=== PATIENT | female | born 1985 | race Caucasian/White ===

== ENCOUNTER → 2018-10-14 14:55 | Outpatient (CLI) | payer SELFPAY ==
[2018-10-14 18:23] LABS: Chlamydia Trachomatis by PCR Negative (Negative); Neisserai gonorrhoeae by PCR Negative (Negative); Probe Check PASS; Sample Adequacy Control PASS; Specimen Processing Control PASS
== END ==
PROVIDERS: Visit Provider Obstetrics & Gynecology
DX: Z12.4 Encounter for screening for malignant neoplasm of cervix (principal); Z11.3 Encounter for screening for infections with a predominantly sexual mode of transmission; Z32.01 Encounter for pregnancy test, result positive
CPT/HCPCS: 87491; 87591; 88175; G0145

== ENCOUNTER → 2018-11-11 16:17 | Outpatient (CLI) | payer SELFPAY ==
[2018-11-11 17:20] LABS: Color, Urine Yellow (Yellow); Glucose, Dipstick Normal (Normal); Ketone-Dipstick 5 mg/dl (Negative); Leukocyte Esterase-Dipstick Negative /ul (Negative); Nitrite-Dipstick Negative (Negative); Occult Blood-Urine Negative /ul (Negative); Protein-Dipstick Negative (Negative); Specific Gravity, Urine 1.015 (1.002-1.030); Urine Bilirubin Dipstick Negative (Negative); Urine Clarity Sl. Cloudy (Clear); Urine Urobilinogen Normal (Normal)
[2018-11-11 17:27] LABS: Absolute Lymphocyte Count 2.51 X10^3/uL (0.83-4.51); Absolute Neutrophil Count 7.3 X10^3/uL (2.0-7.7); Basophil# 0.04 X10^3/uL; Basophil% 0.4 % (0-1); Eosinophil# 0.16 X10^3/uL; Eosinophils% 1.5 % (0-5); Hematocrit 42.6 % (37-47); Hemoglobin 13.9 g/dL (12.0-15.0); Lymphocyte # 2.51 X10^3/ul (4.0); Lymphocyte % 23.7 % (19-41); Mean Corp Hgb Conc 32.6 g/dL (32-36); Mean Corpuscular Hgb 28.3 pg (27.0-32.0); Mean Corpuscular Volume 86.6 fL (81-99); Mean Platelet Vol. 10.1 fl (6.2-12.0); Monocyte# 0.54 X10^3/uL; Monocyte% 5.1 % (0-10); NRBC Flagged by Analyzer 0 % (0-5); Neutrophil # 7.28 X10^3/uL (2.7-7.7); Neutrophil % 68.8 % (47-70); Platelet Count 282 K/mm3 (150-450); RBC Distribution Width CV 14.6 % (11.6-14.6); RBC Distribution Width SD 46.5 fl (35.1-43.9); Red Blood Count 4.92 M/mm3 (4.2-5.4); White Blood Count 10.6 K/mm3 (4.4-11.0)
[2018-11-11 17:37] LABS: Amphetamine Urine VISTA NEGATIVE (<1000 ng/mL); Barbiturate Urine VISTA NEGATIVE (< 200 ng/mL); Benzodiazepine Urine VISTA NEGATIVE (< 200 ng/mL); Cocaine Urine VISTA NEGATIVE (< 300 ng/mL); Ecstacy Urine VISTA NEGATIVE (< 500 ng/mL); Methadone Urine VISTA NEGATIVE (< 300 ng/mL); PCP Urine VISTA NEGATIVE (< 25 ng/mL); THC Urine VISTA NEGATIVE (< 50 ng/mL); Vista UDS pH Range 6
[2018-11-11 17:52] LABS: Thyroid Stim Hormone (TSH) 1.32 uIU/mL (0.358-3.74)
[2018-11-15 10:37] LABS: HIV - WCH Non-Reactive (Nonreactive); Hepatitis B Surface Antigen Non-Reactive (Nonreactive); Hepatitis C Antibody Non-Reactive (Nonreactive); Vitamin D,25 Hydroxy 23.6 ng/mL (29.95-100.01)
[2018-11-18 02:05] LABS: Prenatal RPR NONREACTIVE (NONREACTIVE)
== END ==
PROVIDERS: Visit Provider Obstetrics & Gynecology
DX: Z34.81 Encounter for supervision of other normal pregnancy, first trimester (principal)
CPT/HCPCS: 36415; 80307; 81002; 82306; 84443; 85025; 86703; 86762; 86803; 87340

== ENCOUNTER → 2019-03-03 13:42 | Outpatient (CLI) | payer SELFPAY ==
[2019-03-03 15:05] LABS: Hematocrit 37.4 % (37-47); Hemoglobin 12.2 g/dL (12.0-15.0); Mean Corp Hgb Conc 32.6 g/dL (32-36); Mean Corpuscular Hgb 28.3 pg (27.0-32.0); Mean Corpuscular Volume 86.8 fL (81-99); Mean Platelet Vol. 10.8 fl (6.2-12.0); Platelet Count 257 K/mm3 (150-450); RBC Distribution Width CV 13.9 % (11.6-14.6); RBC Distribution Width SD 44.4 fl (35.1-43.9); Red Blood Count 4.31 M/mm3 (4.2-5.4); White Blood Count 10.4 K/mm3 (4.4-11.0)
[2019-03-03 15:11] LABS: Glucose Challenge Gest 1H 50g 90 mg/dL (70-140)
[2019-03-03 15:22] LABS: Vitamin D,25 Hydroxy 27.6 ng/mL (29.95-100.01)
[2019-03-09 11:38] LABS: PARVOVIRUS B19 IGG 5.6 index (0.0-0.8); PARVOVIRUS B19 IGM 0.2 index (0.0-0.8)
== END ==
PROVIDERS: Visit Provider Obstetrics & Gynecology
DX: O99.283 Endocrine, nutritional and metabolic diseases complicating pregnancy, third trimester (principal); E55.9 Vitamin D deficiency, unspecified; Z3A.00 Weeks of gestation of pregnancy not specified; Z20.828 Contact with and (suspected) exposure to other viral communicable diseases
CPT/HCPCS: 82306; 82950; 85027; 86747

== ENCOUNTER → 2019-04-26 17:29 | Outpatient (CLI) | payer OTHER, SELFPAY | PROVIDERS: Visit Provider Obstetrics & Gynecology | DX: Z36.85 Encounter for antenatal screening for Streptococcus B (principal) | CPT/HCPCS: 87081 ==

== ENCOUNTER 2019-05-16 02:34 | Inpatient (IN) | payer OTHER, SELFPAY ==
[2019-05-16] VITALS (19 sets, daily range): BP systolic 92–129; BP diastolic 35–75; PULSE 78–106; RESP 13–18; TEMP 36.1–36.9; O2SAT 96–99; BMI 42.3
[2019-05-16] MEDS: Lactated Ringers 1,000 ML 999 ML IV (03:34)
[2019-05-16 04:12] LABS: Absolute Neutrophil Count 8.5 X10^3/uL (2.0-7.7); Basophil# 0.04 X10^3/uL; Basophil% 0.3 % (0-1); Eosinophil# 0.11 X10^3/uL; Hematocrit 38.6 % (37-47); Hemoglobin 12.3 g/dL (12.0-15.0); Lymphocyte % 18.2 % (19-41); Mean Corp Hgb Conc 31.9 g/dL (32-36); Mean Corpuscular Hgb 26.1 pg (27.0-32.0); Mean Platelet Vol. 10.5 fl (6.2-12.0); Monocyte# 0.67 X10^3/uL; Monocyte% 5.8 % (0-10); NRBC Flagged by Analyzer 0 % (0-5); Neutrophil # 8.52 X10^3/uL (2.7-7.7); Neutrophil % 74.1 % (47-70); Platelet Count 252 K/mm3 (150-450); RBC Distribution Width CV 15.9 % (11.6-14.6); RBC Distribution Width SD 46.5 fl (35.1-43.9); Red Blood Count 4.71 M/mm3 (4.2-5.4); White Blood Count 11.5 K/mm3 (4.4-11.0)
[2019-05-16] MEDS: Sodium Citrate/Citric Acid 30 ML UDC PO (04:21)
--- NOTE | 2019-05-16 04:29 | HP.PCM_ITS ---
History and Physical Date of Admission: 05/16/19 ACOG ANTEPARTUM RECORD - HISTORY AND PHYSICAL (05/16/2019) Name: AIME RAY History of This : This is a 33-year-old 2 para 1 who presents to labor and delivery with spontaneous rupture membranes and active labor. care has been remarkable for a prior section in which the incision took about 4 months to heal. OB Physician: HANK 's Physician: KIN DIRECTOR OF CLAIMS ...................................................................... : 1985 Age: 33 Address: [address] [place] [address] Phone: (h) [phone] ([phone] Insurance Carrier: [facility] [id number] Emergency Contact: HORTENSIA RAY [phone] ...................................................................... Final STEF: 05/24/19 By Ultrasound: 12 weeks 2 days PARITY: (G-Total Pregnancies P-Fullterm,Premature,Induced AB,Spont AB, Ectopics, Multiple,Living) STEF CONFIRMATION: By LMP: 08/17/18 Initial Exam: 05/24/19 By First Ultrasound Exam: 05/26/19 Final STEF: 05/24/19 OB PROBLEM LIST: ALLERGIC to AMOXICILLIN! Declines msAFP and CF testing EPDS = 6 Excessive weight gain with first , 75+ lbs. Fibromyalgia (trauma induced) has a niece born with a Diaphragmatic Hernia Hx of migraines Post-op C/S incision infection, incision took 4 months to heal. Prior C/S, arrest of dilation and fever; R C/S planned Tachycardia in the 2nd trimester of her first . Work up with Work From Home, no treatment needed. 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 Drug Use - denies use of street drugs Sexual Activity - Residence - lives with Place of - [place], [place] Spouse-Sig Other Name - Hortensia Spouse-Sig Other Occupation - Pharmacist Spouse-Sig Other Phone No - [phone] Children Name(s) - Cassandra PRIOR DELIVERY HISTORY DEL DATE GEST LAB WT LB WT OZ TYPE ANES LABOR TX 13 July 30 39 14 8 9 C-Sec Epidural No ANTEPARTUM FLOW CHART VISIT GE RTC FU F F HI U U DATE WK MD WKS HT PN HR M SS BP ED WT HI GL D EF ST __ ____ ___ __ __ ___ __ __ __ ___ __ __ __ ___ __ 28 Apr 38 SHM 1 38 V + + 120/78 sl 219 tr - Apr 37 JMW 1 37 V + + 104/70 sl 217 tr - 1 50 hi 12 Apr 36 SHM 1 + 130/78 0 213 1+ - 05 Apr 35 SHM 2 35 V + + 116/70 sl 212 tr - Mar SHM 1 33 ? ++ ++ 118/70 0 209 tr ne Apr 14 SHM 2 31 ? + + 116/76 0 205 tr - Mar 11 SHM 2 28 + + 130/76 0 203 tr - Feb 05 SHM 4 24 + + 128/82 0 198 tr - Jan 01 SHM 4 23 + + 108/60 sl 195 tr - Nov 28 SHM 4 + + 114/58 0 191 tr - Oct 24 SHM 4 + 0 102/70 0 185 - - ANTEPARTUM NOTE(S): May 12 2019: feeling well. Csection papers signed. May 05 2019: discomfort and lots of cramping. Cervix check. Apr 26 2019: see note Apr 19 2019: questions regarding C/S Apr 07 2020: Mar 23 2020: none Mar 03 2019: see note Feb 03 2019: doing well Jan 04 2019: see prog note Dec 09 2018: doing well, declines AFP Nov 11 2019: see prog note COMPREHENSIVE ANTEPARTUM NOTE(S): May 13 2020: Entry for 05/12: section consents reviewed and signed. Discussed preop prep, anticipated hospitalization. Plan immediate skin to skin. May 02 2019: H taken [facility]. tkg Apr 26 2019: Aime is here for visit. Planned R C/S and declines GBS today and will discuss this further with Dr SAMANIEGO. She declines LARC and consent signed. LMT Apr 07 2019: Discussed L tour, PTL precautions. NST for tachycardia. Mar 23 2019: Aime is here for a appt. She is feeling good with no issues or edema. Urine tr -. Daughter Taylor with her today. Deciding on names for baby girl. MK Mar 23 2019: Mar 09 2019: Entry for 03/03/19: Discussed PPBC, PTL precautions. Pt with recent exposure to Parvovirus. Titers ordered. Mar 03 2019: Having more irregular ctx's. Reviewed to call if progressive, regular ctx's, bloody show. Some ctx's may be normal but should not be progressive. Had Influenza and plans Tdap around 33 weeks. GCT, CBC, Vitamin D drawn today. LMT Feb 03 2019: PTL, ROM, FM precautions. Anatomy scan completed, normal cord insertion. Plan for repeat C/S at 39wga. Jan 04 2019: Aime is here today for her visit. Patient had comp u/s today in office. She staets that she has been having rt sided discomfort states that has a sharp pain when rt side has pressure applied to it. Long dip done in office leuk, nitrite, and urobilinogen-neg, protein-trace, pH-5, blood- neg, sp gravity-1015, ketones, bilirubin and glucose-neg. jlb Jan 04 2019: Anatomy scan with limited cord views, ventricle upper normal. Repeat heart views and cord views next visit. Dec 12 2018: Aime calling 16 wks 5 days reporting she was in the ER all night with her , who fell out of a tree stand sustaining a Fx ankle and laceration. During her stay in the ER w/ her , she relays feeling faint, having tunnel vision, light headedness and was told she was pale during laceration repair and was told to let her OB know. They just got back home a little while ago. She has had no sleep, she is eating and including a little protein and plenty of water. Sx did not last long, but she still feels off and wondering about the Sx she experienced in the ER? Advised even if she weren't , Sx do not sound out of the ordinary given it was someone close to her who was hurt. Reassurred she is and sometimes women can have similar Sx NOT related to an ER experience, but can occur w/prolonged standing or sudden position changes. Reassurring Sx resolved and likely feeling off d/t emotion of 's injury and that she has been up all night. Continue self care, plenty fluids, eating small meals w/protein and try to take a nap today. Will let Dr. Natalie Gutierrez know. Dec 09 2018: Declines msAFP, Quad screen. Discussed FM, discomforts of . Nausea recently resolved. Discussed diet. Nov 11 2018: Aime is here today for visit, NOB and u/s. Patient states that she has had an increase in headaches, recommended that she should try Tylenol and caffeine if not improving let us know we could maybe send in a script for medication that might help. Patient states that she also uses a cold compress on her eyes and recommended that she could try a compress on back of her neck as well. Patient states that she is taking Zofran for nausea and that headaches makes nausea worse. Patient states that she is constipated from the Zofran she is taking colace and increased to BID advised mirialax if no BM with colace patient has been trying prunes as well. jlb Nov 11 2018: Aime is here for her NOB visit at 12 w 2 d, she is a with an STEF of 05/24/2019. US and PNV with Dr. Natalie Gutierrez completed prior to NOB visit. She and her , Hortensia, have a young daughter at home. Hortensia appears to be supportive. Their daughter was born at [facility] in [place] by C/S for arrest of dilation and maternal fever. Past history updated. Aime reports that she had tachycardia during her sencond trimester, and had a consult with a center line cutter operator, but no treatmet was needed, and it resolved on it's own. She also states that she gained 75+ lbs with her first , and that she lost 30+ lbs shortly after delivery, and then continues to lose 30+ lbs for the next several months following delivery. She denies having PIH. Aime reports that she had delayed wound C/S wound healing d/t edema, and that she has a post- op wound infection. She is hoping to avoid excessive weight gain again, discussed dietary needs and water needs, and watching hidden sodium in foods/drinks. Reviewed caloric needs, limiting empty calories, and limiting caffeine to one cup a day. Printed guide for food safety provided with review. Office practice patterns discussed, including labs that will be collected today. Emergencies/dangers signs to report, round ligament oain, contacting office after hours, reporting s/s of a UTI, and common OTC medications approved/not approved for use during . Aiem takes an OTC vitamin that contains DHA, and tolerates this well. She is a non- smoker, and denies use of drugs or ETOH. Genetic Screening form completed, her has a niece who was born with a Diaphragmatic Hernia. MSAFP and CF testing declined, consent signed as such. Aime states that she has trauma induced Fibromyalgia that feels better with . Denies hx of depression/anxiety. EPDS = 6. She has a hx of migraines and has discussed this at her PNV. She reports daily nausea and some vomiting, reviewed measures that may help minimize nausea, including small frequent meals with protein included throughout the day and adequate water hydration of at least one gallon a day. She has tried Vitamin B6 50 mg twice a day and Unisom with little effect noted. Aime does feel that the nausea is not quite as bad. Aime states that she takes walks several times a week. Lifting restrictions discussed. She states that she understands all information provided during NOB visit, and denies questions following same. To [facility] draw station for labs. AW Nov 11 2018: Discussed caffeine/APAP/benadryl for headaches. labs today. Oct 14 2018: Aime is here today for missed menses appointment. Patient is a . Positive upt in office today. Patient states that lmp is 08/17/2018 making her 8wk 2 days with Stef of 05/24/2019. Patient states that she has had no bleeding or spotting since lmp. Patient states that she has mild nausea, breast tenderness and fatigue. Patient states that nausea is tolerable reviewed vitamin B6 and Unisom if needed for nausea and patient to call office if script needed. Patient has h/o normal pap's. Pap and cultures due at today's visit. Educational materials provided and reviewed with patient. Patient states that she has h/o trauma induced fibromyalgia but that sx improve during and while breast feeding. Jlb REVIEW OF SYSTEMS: GENERAL - Denies fever, or chills SKIN - Denies rash, new skin lesions, or change in moles EYES - Denies blurred vision, or change in visual acuity EARS - Denies ear pain, or difficulty hearing NOSE - Denies nasal congestion, discharge, or bleeding MOUTH - Denies sore throat, or difficulty swallowing NECK - Denies pain or swelling RESPIRATORY - Denies shortness of breath, cough, wheezing CARDIOVASCULAR - Denies palpitations, chest pain, orthopnea, PND, peripheral edema, syncope or claudication GASTROINTESTINAL - Denies nausea, vomiting, diarrhea, constipation, Denies abdominal pain, melena and or bright red blood GENITOURINARY - Denies dysuria, frequency of urination, urgency, or hesitancy MUSCULOSKELETAL - Denies joint or muscle pain, or back pain NEUROLOGICAL - Denies localized numbness, weakness, or tingling PSYCHIATRIC - Denies depression, anxiety, substance abuse or suicide attempts ENDOCRINE - Denies heat or cold intolerance, weight loss or gain, increasing thirst HEMATO-IMMUNOLOGIC - Denies easy bruising, bleeding, oral ulcerations or recurrent infections GENETICS SCREENING: Age 35+ years: No Thalassemia: No Neural Tube Defect: No Down Syndrome: No JÚNIOR-SACHS: No Sickle Cell Disease: No Hemophilia: No Musc. Dystrophy: No Cystic Fibrosis: No-declines screening Barton Chorea: No Mental Retardation: No Fragile X: No Other genetic: yes-diaphragmatic hernia Other defects: yes- diaphragmatic hernia SABs/still births: No Drugs since LMP: No INFECTION HISTORY: High risk AIDS: No High risk Hepatitis: No Exposed to TB: No Exposed to Herpes: No Rash/viral illness since LMP: No History of STD: No MENSTRUAL HISTORY: *Menses Amount/Duration: 7-8 daysMenses Regularity: regularFrequency: monthlyMenarche (Age Onset): 14* PAST SUMMARY: PARITY: 1. Total Pregnancies............ 2 2. Full Term Pregnancies........ 1 3. Premature.................... 0 4. Abortions - Induced.......... 0 5. Abortions - Spontaneous...... 0 6. Ectopics..................... 0 7. Multiple Births.............. 0 8. Living Children.............. 1 PAST #1: Date of :.................. 07/25/17 Gestation Weeks:................ 39 Length of labor(hours):......... 14 Sex:............................ F Weight-lbs:............... 8 Weight-oz:................ 9 Type of Delivery:............... C-Sect Type of Anesthesia:............. Epidural Place of Delivery:.............. [facility] Treatment of Labor?:.... No Comment: ARREST OF DILATION, FEVER PHYSICAL EXAMINATION General Appearence: 33 yo female in no acute distress Vital Signs: AF, VSS Heart: RRR without rubs or gallops Lungs: CTA x 2 Breasts: deferred Abdomen: gravid Pelvis: Cervix: 1 to 2 cm, 50% effaced Presentation: cephalic Station: High Fetus: Size: AGA Movement: present Heart: present Labs for : AIME RAY since 08/27/2018 ORDER DATEIN DESCRIPTION VALUE UNITS RANGE A+ COMMENT CULTURE, GROUP B STREPTOCOCCUS 04/26/19 NOTE Original Ordering Provider: Latasha Lindsey Comments: VAGINAL/RECTAL PRANEETH Culture Group B Beta Streptococcus is not isolated. Reviewed by LATASHA PARVOVIRUS B19 IGG AND IGM 03/03/19 NOTE Original Ordering Provider: Latasha Lindsey PARVO B19 IGG 5.6 index 0.0-0.8 H Negative <0.9 Equivocal 0.9 - 1.1 Positive >1.1 PARVO B19 IGM 0.2 index 0.0-0.8 Negative <0.9 Equivocal 0.9 - 1.1 Positive >1.1 Performed at: [facility] [id number] Commercial Intern: Damon Rodas MD, Phone: [phone] Reviewed by LATASHA VITAMIN D,25 HYDROXY 03/03/19 NOTE Original Ordering Provider: Latasha Lindsey VITAMIN D 25-OH 27.6 ng/mL 29.95-100.01 L Vitamin D 25(OH) Status Range Deficiency <20 ng/mL (50nmol/L) Insufficiency 20 - 30 ng/mL (50 - 75 nmol/L) Sufficiency 30 - 100 ng/mL (75 - 250 nmol/L) Toxicity >100 ng/mL (>250 nmol/L) Reviewed by LATASHA GLUCOSE CHALLENGE GEST 1H 50G 03/03/19 NOTE Original Ordering Provider: Latasha Lindsey GLU GEST 50G 1H 90 mg/dL 70-140 Reviewed by LATASHA CBC-COMPLETE BLOOD CNT NO DIFF 03/03/19 NOTE Original Ordering Provider: Latasha Lindsey WBC 10.4 K/mm3 4.4-11.0 RBC 4.31 M/mm3 4.2-5.4 HGB 12.2 g/dL 12.0-15.0 HCT 37.4 % 37-47 MCV 86.8 fL 81-99 MCH 28.3 pg 27.0-32.0 MCHC 32.6 g/dL 32-36 RDW CV 13.9 % 11.6-14.6 RDW SD 44.4 fl 35.1-43.9 H PLT 257 K/mm3 150-450 MPV 10.8 fl 6.2-12.0 Reviewed by LATASHA RPR 11/11/18 NOTE Original Ordering Provider: Latasha Lindsey RPR NONREACTIVE NONREACTIVE Reviewed by LATASHA HEPATITIS C ANTIBODY 11/11/18 NOTE Original Ordering Provider: Latasha Lindsey HEPATITIS C AB Non-Reactive Nonreactive Non Reactive: < 0.8 Equivocal: >/= 0.8 to < 1.0 Reactive: >/= 1.0 The CDC recommends that a reactive/equivocal HCV antibody result be followed up by the HCV Nucleic Acid Amplification test (798115) Reviewed by LATASHA HEPATITIS B SURFACE ANTIGEN 11/11/18 NOTE Original Ordering Provider: Latasha Lindsey HEPB SURFACE AG Non-Reactive Nonreactive Reviewed by LATASHA HIV - [facility] 11/11/18 NOTE Original Ordering Provider: Latasha Lindsey HIV - [facility] Non-Reactive Nonreactive Reviewed by LATASHA RUBELLA IGG 11/11/18 NOTE Original Ordering Provider: Latasha Lnidsey RUBELLA IGG 168.0 IU/mL Antibody results Interpretation of Immune Status < 5 IU/ml Presumed Non-immune 5 - < 10 IU/ml Equivocal > or = 10 IU/ml Presumed Immune Reviewed by LATASHA VITAMIN D,25 HYDROXY 11/11/18 NOTE Original Ordering Provider: Latasha Lindsey VITAMIN D 25-OH 23.6 ng/mL 29.95-100.01 L Vitamin D 25(OH) Status Range Deficiency <20 ng/mL (50nmol/L) Insufficiency 20 - 30 ng/mL (50 - 75 nmol/L) Sufficiency 30 - 100 ng/mL (75 - 250 nmol/L) Toxicity >100 ng/mL (>250 nmol/L) Reviewed by LATASHA T AND S-NO CHARGE W/PNP 11/11/18 Reason for Type AND Screen/Red Cells: Surgery? [facility]~[address] [facility] [place], [address]~ BLOOD TYPE GEL A POSITIVE N AB SCREEN GEL NEGATIVE N Reviewed by LATASHA URINALYSIS, ROUTINE (DIPSTICK) 11/11/18 NOTE w Original Ordering Provider: Latasha Lindsey COLOR Yellow Yellow CLARITY Sl. Cloudy Clear GLUCOSE, UR Normal mg/dl Normal BILIRUBIN URINE Negative mg/dL Negative KETONE UR 5 mg/dl Negative H SP.GR. DIPSTX 1.015 1.002-1.030 PH UR 7.0 5.0 - 8.0 PROT DIPSTX Negative mg/dl Negative UROBILI Normal mg/dl Normal NITRITE UR Negativew Negative OCCULT BLOOD-UR Negative /ul Negative LEUK ESTERASE Negative /ul Negative Reviewed by LATASHA THYROID STIM HORMONE (TSH) 11/11/18 NOTE Original Ordering Provider: Latasha Lindsey TSH 1.32 uIU/mL 0.358-3.74 Reviewed by LATASHA URINE DRUG SCREEN (VISTA) 11/11/18 NOTE Original Ordering Provider: Latasha Lindsey TO BE CONFIRMED CONFIRMATORY TESTING FOR ALL POSITIVE URINE DRUG SCREEN RESULTS WILL ONLY BE SENT OUT UPON PHYSICIAN ORDER. VISTA Urine Drug Screen methods provide only preliminary analytical test results. A more specific alternate chemical method must be used in order to obtain a confirmed analytical result. Gas chromatography/mass spectrometery (GC/MS) is the preferred confirmatory method. Clinical consideration and professional judgement should be applied to any drug of abuse test result, particularly when preliminary positive results are used. URINE TCA TESTING MUST BE ORDERED SEPARATELY. USE TEST MNEMONIC: [facility]ISTA UDS PH 6 AMPHETAMINES NEGATIVE <1000 ng/mL BARBITIURATES NEGATIVE < 200 ng/mL BENZODIAZIPINE NEGATIVE < 200 ng/mL COCAINE NEGATIVE < 300 ng/mL ECSTACY NEGATIVE < 500 ng/mL METHADONE NEGATIVE < 300 ng/mL OPIATES NEGATIVE < 300 ng/mL PCP NEGATIVE < 25 ng/mL THC NEGATIVE < 50 ng/mL Reviewed by LATASHA CBC W/DIFF, AUTOMATED 11/11/18 NOTE Original Ordering Provider: Latasha Lindsey WBC 10.6 K/mm3 4.4-11.0 RBC 4.92 M/mm3 4.2-5.4 HGB 13.9 g/dL 12.0-15.0 HCT 42.6 % 37-47 MCV 86.6 fL 81-99 MCH 28.3 pg 27.0-32.0 MCHC 32.6 g/dL 32-36 RDW CV 14.6 % 11.6-14.6 RDW SD 46.5 fl 35.1-43.9 H PLT 282 K/mm3 150-450 MPV 10.1 fl 6.2-12.0 NEUT% 68.8 % 47-70 LY% 23.7 % 19-41 MONO% 5.1 % 0-10 EO% 1.5 % 0-5 BASO% 0.4 % 0-1 IM GRAN % 0.500 % 0.0-0.9 IG% - Immature Granulocytes (promyelocytes, myelocytes and metamyelocytes) > 1% indicates that a LEFT SHIFT is Present. ABSOLUTE NEUT 7.3 X10 3/uL 2.0-7.7 ABSOLUTE LYMPH 2.51 X10 3/uL 0.83-4.51 NRBC, FLAGGED 0 % 0-5 Reviewed by LATASHA PAP TEST I-G 10/14/18 NOTE Original Ordering Provider: Latasha Lindsey DIAGN . NEGATIVE FOR INTRAEPITHELIAL LESION OR MALIGNANCY. ADEQ . Satisfactory for evaluation. Endocervical and/or squamous metaplastic cells (endocervical component) are present. PERFORM . [employer] (ASCP) TEST METHOD . This liquid based ThinPrep(R) pap test was screened with the use of an image guided system. Performed at: [address] [id number] Commercial Intern: Elida Weiss MD, Phone: [phone] COMM . . PAPSMR . The Pap smear is a screening test designed to aid in the detection of premalignant and malignant conditions of the uterine cervix. It is not a diagnostic procedure and should not be used as the sole means of detecting cervical cancer. Both false-positive and false-negative reports do occur. Reviewed by LATASHA CT/MINAL [facility] BY PCR 10/14/18 NOTE Original Ordering Provider: Latasha Lindsey [facility] PCR Negative Negative NG BY PCR Negative Negative Reviewed by LATASHA Impression /Plan: 38+ week intrauterine for prior section with spontaneous rupture of membranes. Preparations in progress for delivery.
[2019-05-16] MEDS: Cefazolin 2 GM in 0.9% Normal Saline 100 ML IV (04:30)
--- NOTE | 2019-05-16 04:40 | OP.PCM_ITS ---
Delivery Classification: ABBY Final STEF: 05/24/19 Final STEF Source: US <20 weeks Gestational age: 38 Weeks and 6 Days senior linux systems administrator: Alessandra Ngo Type of Anesthesia:: Spinal - With Duramorph Implants Used: None Date of Procedure: 05/16/19 Pre-Operative Diagnosis: Prior Section Post-Operative Diagnosis: Prior Section Description of Procedure: Surgeon: Philip Sanchez MD, FACOG Pulling Unit Operator: TYLER Zhong Anesthesia: Bryan Samuel CRNA Anesthesia: Spinal with Duramorph Pre-op Diagnosis: - Prior Section Post-Op Diagnosis: - Prior Section Procedure: Repeat Low Transverse Cervical Caesarean Section Findings: Viable female infant with Apgars of 8/9 in occiput anterior presentation with clear amniotic fluid and normal three-vessel placenta. Large window in the lower uterine segment repaired well with uterine incision closure. Indication: This is a 33-year-old who presents for her second at 38+ weeks gestation. She presented with rupture of membranes to labor and delivery in active labor. care has otherwise been uneventful. The patient has been counseled regarding the risk and indications of this procedure including the possibility of bleeding infection and injury to surrounding structures such as bowel bladder. All questions were answered. Procedure: Patient was taken to the operating room where after spinal anesthesia was placed, the patient was prepped and draped in usual sterile fashion and a Easton catheter was placed. The abdomen was entered through the patient's prior Pfannenstiel incision and peritoneum was entered bluntly. Skin scar from her prior section was excised. After developing a bladder flap on the lower uterine segment a low transverse incision was made on the uterus and head was easily delivered onto the operative field the nose mouth and oropharynx were bulb suctioned. Subsequently a viable female was born with Apgars of 8/9. The was noted to cry move all extremities vigorously on the operative field. The umbilical cord was doubly clamped and ligated and infant handed to the nursery personnel who were present for the delivery. Placenta was delivered and noted to be 3 vessels and normal. Uterus was exteriorized and remaining placental tissue was removed. The uterus was then closed in 2 layers first with running locked 0 Vicryl suture followed by a second imbricating layer with 0 Vicryl suture. 0 Vicryl suture was then used in a horizontal mattress interrupted fashion to affect final hemostasis of the uterine incision line. Normal fallopian tubes and ovaries were visualized and the uterus was returned to the pelvis. Hemostasis was noted and rectus abdominis muscles were reapproximated in the midline with interrupted Number 0 Vicryl suture in a horizontal mattress fashion. Fascia was closed with running Number 1 PDS Strata fix suture. Subcutaneous tissue was irrigated with copious amounts of saline solution and then closed in 2 layers with running 3-0 Vicryl suture. Skin was closed with 4-0 monocryl suture in a running subcuticular fashion. Steri strips and Mepilex dressing were placed across the incision. The patient tolerated the procedure well and was taken to the recovery room in satisfactory condition. Sponge, needle, and instrument counts were all reportedly correct. EBL was less than 500 cc. Ancef 2 gms IV was given prior to the procedure. Amniotic Membrane Rupture Type: Spontaneous Amniotic Fluid Description: Clear Placenta Disposition: [facility] Specimen(s) sent to pathology: None Drain: Easton to straight drain Fluids Replaced: Crystalloid Cord Entanglement: - - Around body and leg tight Cord Vessel Description: 3 Vessels Esitmated Blood Loss (ml): 500 cc Gender: Female (1 minute): 8 (5 minute): 9 Antibiotic Given: Ancef 2 grams IV x1 Pt instructed on risks of surgery: Bleeding, Infection, Injury to surrounding structure(s) including bowel and bladder Complications: None - Admit VTE Documentation VTE Present on Admission: Yes VTE Mechan Device Prophylaxis: SCD's VTE Pharm Prophylaxis ordered?: Yes
[2019-05-16] MEDS: Oxytocin 30 units/NS 500 ml 30 UNITS/500 ML IV.SOLN 167 UNITS IV (06:20)
--- NOTE | 2019-05-16 08:25 | DCINST_ITS ---
<Philip Sanchez - Last Filed: 05/16/19 08:25> Discharge Diet: No Restrictions Discharge Activity: May not drive while taking narcotic pain medications., May Shower, May Take a Tub Bath May resume sexual activity in: 4-6 weeks Lifting Restrictions: 20 pounds Additional Activity Instructions:: Nothing in the vagina for 4-6 weeks. You may return to work/school in 6 weeks. Call your doctor if your incision/area has: Continuous Slow Oozing, Sudden Increased Bleeding, Increased Pain/ Swelling, Increased Redness, Foul Smelling Discharge Call your doctor if you observe: Fever of 101 or Higher, Inability to urinate, Inability to have a bowel movement, Using more than one pad per hour Additional Instructions: If you experience any of the following, contact your healthcare provider. * Bleeding that soaks a pad every hour for 2 hours * Unrelieved incision or abdominal pain * Swelling, redness, discharge or bleeding from your incision or epi siotomy site * Your incision begins to separate * Problems urinating (including inability to urinate or burning while urinating). * Visual changes * Severe headache * Flu-like symptoms * Pain or redness in one of both of your breasts * Pain, warmth, tenderness or swelling in your legs, especially the calf area * Frequent nausea and vomiting * Symptoms of depression or anxiety If you experience any of the following, call 911 or go to the nearest Emergency Room. * Chest pain * Problems breathing * Seizure activity * Partial or complete paralysis of a body part, slurred speech, weakness or drooping of the face, or a sudden inability to walk or hold your balance Allergies/Adverse Reactions: Allergies amoxicillin Allergy (Verified 05/16/19 03:32) Hives Medications to take at Discharge Docusate Sodium [Colace] 100 mg PO BID PRN PRN #60 cap 05/16/19 Oxycodone [Oxyir] 5 mg PO Q6H PRN PRN 7 Days #20 tab 05/16/19 Vits [Prenatabs FA] 1 tab PO DAILY 05/16/19 The following prescriptions were given: Docusate Sodium [Colace] 100 mg PO BID PRN PRN #60 cap PRN Reason: Constipation Transmission Status: Received by [facility] [id number] Oxycodone [Oxyir] 5 mg PO Q6H PRN PRN 7 Days #20 tab PRN Reason: Pain Score 6-10 Transmission Status: Received by [facility] [id number] Follow-Up: Call to make an appointment with your doctor for an incision check in 1-2 weeks. You will also need a 6 week post- follow up appointment. Test results from this visit will be discussed in further detail at your follow- up appointment, if applicable. Please Follow Up With: Capri Lindsey MD - [phone] When: Call to make an appointment for an incision check in 2 weeks. <Capri Lindsey - Last Filed: 05/18/19 08:52> Additional Instructions: If you experience any of the following, contact your healthcare provider. * Bleeding that soaks a pad every hour for 2 hours * Fever 100.4 or higher * Unrelieved incision or abdominal pain * Swelling, redness, discharge or bleeding from your incision or episiotomy site * Your incision begins to separate * Problems urinating (including inability to urinate or burning while urinating). * Visual changes * Severe headache * Flu-like symptoms * Pain or redness in one of both of your breasts * Pain, warmth, tenderness or swelling in your legs, especially the calf area * Frequent nausea and vomiting * Symptoms of depression or anxiety If you experience any of the following, call 911 or go to the nearest Emergency Room. * Chest pain * Problems breathing * Seizure activity * Partial or complete paralysis of a body part, slurred speech, weakness or drooping of the face, or a sudden inability to walk or hold your balance Follow-Up: Call to make an appointment with your doctor for an incision check in 1-2 weeks. You will also need a 6 week post- follow up appointment. Test results from this visit will be discussed in further detail at your follow- up appointment, if applicable.
--- NOTE | 2019-05-16 08:25 | PCM.DCCSEC ---
<Philip Sanchez - Last Filed: 05/16/19 08:25> Discharge Diet: No Restrictions Discharge Activity: May not drive while taking narcotic pain medications., May Shower, May Take a Tub Bath May resume sexual activity in: 4-6 weeks Lifting Restrictions: 20 pounds Additional Activity Instructions:: Nothing in the vagina for 4-6 weeks. You may return to work/school in 6 weeks. Call your doctor if your incision/area has: Continuous Slow Oozing, Sudden Increased Bleeding, Increased Pain/ Swelling, Increased Redness, Foul Smelling Discharge Call your doctor if you observe: Fever of 101 or Higher, Inability to urinate, Inability to have a bowel movement, Using more than one pad per hour Additional Instructions: If you experience any of the following, contact your healthcare provider. Bleeding that soaks a pad every hour for 2 hours Unrelieved incision or abdominal pain Swelling, redness, discharge or bleeding from your incision or episiotomy site Your incision begins to separate Problems urinating (including inability to urinate or burning while urinating). Visual changes Severe headache Flu-like symptoms Pain or redness in one of both of your breasts Pain, warmth, tenderness or swelling in your legs, especially the calf area Frequent nausea and vomiting Symptoms of depression or anxiety If you experience any of the following, call 911 or go to the nearest Emergency Room. Chest pain Problems breathing Seizure activity Partial or complete paralysis of a body part, slurred speech, weakness or drooping of the face, or a sudden inability to walk or hold your balance Allergies/Adverse Reactions: Allergies amoxicillin Allergy (Verified 05/16/19 03:32) Hives Medications to take at Discharge Docusate Sodium [Colace] 100 mg PO BID PRN PRN #60 cap 05/16/19 Oxycodone [Oxyir] 5 mg PO Q6H PRN PRN 7 Days #20 tab 05/16/19 Vits [Prenatabs FA] 1 tab PO DAILY 05/16/19 The following prescriptions were given: Docusate Sodium [Colace] 100 mg PO BID PRN PRN #60 cap PRN Reason: Constipation Transmission Status: Received by [facility] [id number] Oxycodone [Oxyir] 5 mg PO Q6H PRN PRN 7 Days #20 tab PRN Reason: Pain Score 6-10/10 Transmission Status: Received by [facility] [id number] Follow-Up: Call to make an appointment with your doctor for an incision check in 1-2 weeks. You will also need a 6 week post- follow up appointment. Test results from this visit will be discussed in further detail at your follow-up appointment, if applicable. Please Follow Up With: Capri Lindsey MD - [phone] When: Call to make an appointment for an incision check in 2 weeks. <Capir Lindsey - Last Filed: 05/18/19 08:52> Additional Instructions: If you experience any of the following, contact your healthcare provider. Bleeding that soaks a pad every hour for 2 hours Fever 100.4 or higher Unrelieved incision or abdominal pain Swelling, redness, discharge or bleeding from your incision or episiotomy site Your incision begins to separate Problems urinating (including inability to urinate or burning while urinating). Visual changes Severe headache Flu-like symptoms Pain or redness in one of both of your breasts Pain, warmth, tenderness or swelling in your legs, especially the calf area Frequent nausea and vomiting Symptoms of depression or anxiety If you experience any of the following, call 911 or go to the nearest Emergency Room. Chest pain Problems breathing Seizure activity Partial or complete paralysis of a body part, slurred speech, weakness or drooping of the face, or a sudden inability to walk or hold your balance Follow-Up: Call to make an appointment with your doctor for an incision check in 1-2 weeks. You will also need a 6 week post- follow up appointment. Test results from this visit will be discussed in further detail at your follow-up appointment, if applicable.
--- NOTE | 2019-05-16 08:27 | PCM.PN.BLA ---
Progress Note Patient seen. POD#1 s/p RLTCS, uterine window incidentally present, patient doing well. Pain controlled. Not yet out of bed. nursing well. Routine postop care today. STROKE Vital Signs/Narrative: Vital Signs Temp Pulse Resp BP Pulse Ox 05/16/19 08:04 97.9 F 91 15 96/55 L 96 05/16/19 07:35 100 15 95/44 L 96 05/16/19 07:34 88 13 92/50 L 97 05/16/19 07:25 98.4 F 89 14 95/54 L 97 05/16/19 07:05 97.9 F 106 H 16 105/63 97 05/16/19 06:50 97.8 F 93 16 93/48 L 96 05/16/19 06:35 98.0 F 86 16 114/51 L 98 05/16/19 06:20 97.4 F L 89 16 122/59 H 98 05/16/19 06:05 97.9 F 92 18 117/35 L 96
[2019-05-16] MEDS: Acetaminophen 500 MG Tablet 1000 MG PO (09:09)
[2019-05-16] MEDS: Lactated Ringers 1,000 ML 100 ML IV (09:10)
[2019-05-16] MEDS: Ketorolac 30 MG/ML Syringe IV ×2 (11:43→18:07)
[2019-05-16] MEDS: Cefazolin 1 GM/50 ML BAG IV ×2 (11:43→20:05)
[2019-05-16] MEDS: 0.9% Saline Lock 10 ML Syringe IV ×2 (14:20→18:07)
[2019-05-16] MEDS: Enoxaparin 40 MG/0.4 ML Syringe SC (16:00)
[2019-05-16] MEDS: Senna/Docusate Sodium 1 Tablet PO (20:04)
[2019-05-17] MEDS: 0.9% Saline Lock 10 ML Syringe IV ×5 (00:36→23:39)
[2019-05-17] MEDS: Ketorolac 30 MG/ML Syringe IV ×5 (00:36→23:39)
[2019-05-17 00:45] VITALS: BP 108/55; PULSE 84; RESP 16; TEMP 36.3; O2SAT 97
[2019-05-17 03:20] VITALS: BP 101/55; PULSE 60; RESP 18; TEMP 36.5; O2SAT 98
[2019-05-17 05:39] LABS: Hematocrit 35.5 % (37-47); Hemoglobin 11.2 g/dL (12.0-15.0); Mean Corp Hgb Conc 31.5 g/dL (32-36); Mean Corpuscular Hgb 26.1 pg (27.0-32.0); Mean Corpuscular Volume 82.8 fL (81-99); Mean Platelet Vol. 10.5 fl (6.2-12.0); Platelet Count 202 K/mm3 (150-450); RBC Distribution Width CV 16.2 % (11.6-14.6); RBC Distribution Width SD 48.1 fl (35.1-43.9); Red Blood Count 4.29 M/mm3 (4.2-5.4)
--- NOTE | 2019-05-17 07:02 | PCM.PN.OB ---
Subjective: Reports incision sore. Mild cramping with breast feeding. Is using belly binder as needed. No flatus yet. OOB and ambulating without difficulty. Denies heavy lochia. Tolerates PO. Infant clusterfed overnight. Objective: AVSS - Physical Exam Vitals/I&O's: Vital Signs Temp Pulse Resp BP Pulse Ox 97.7 F L 60 18 101/55 L 98 05/17/19 03:20 05/17/19 03:20 05/17/19 03:20 05/17/19 03:20 05/17/19 03:20 Oxygen Delivery Method Room Air Weight: 98.2 kg Body Mass Index (BMI) 42.3 Intake and Output for Last 24 Hours 05/15/19 05/16/19 05/17/19 23:59 23:59 23:59 Intake Total 2000.75 / 75 Output Total 1650 / 1650 Balance 351.75 / 351.75 General: Alert, Oriented x3, Cooperative HEENT: Normocephalic Lungs: Clear to auscultation, Normal air movement Cardiovascular: Regular rate, Regular Rhythm, Normal S1, Normal S2 Abdomen: Bowel Sounds Present, Soft, Non Tender, Non-Distended, - - fundus firm and nontender at umbilicus, lochia scant, incisional dressing c/d/i Extremities: No Calf Tenderness, - - 1+ b/l LE edema Neurological: Neuro grossly intact Psych/Mental Status: Normal Affect, Appropriate, Alert and oriented to time, place, person, mood and affect Laboratory Results 05/17/19 05:25: WBC 9.0, RBC 4.29, Hgb 11.2 L, Hct 35.5 L, MCV 82.8, MCH 26.1 L, MCHC 31.5 L, RDW Std Deviation 48.1 H, RDW Coeff of Manish 16.2 H, Plt Count 202, MPV 10.5 Current Medications Acetaminophen (Tylenol) 1,000 mg PO Q8H PRN PRN Reason: Pain Score 1-3/10 Last Admin: 05/16/19 09:09 Dose: 1,000 mg Documented by: Bisacodyl (Dulcolax) 10 mg RECTAL UD PRN PRN Reason: If no BM Enoxaparin Sodium (Lovenox) 40 mg SC DAILY [facility] Last Admin: 05/16/19 16:00 Dose: 40 mg Documented by: Hydrocortisone (Hytone) 1 applic TOPICAL TID PRN PRN; Protocol PRN Reason: Discomfort Naloxone HCl 4 mg/ Dextrose 504 mls @ 0 mls/hr IV .Q0M PRN; Protocol PRN Reason: Respiratory depression Ibuprofen (Motrin) 600 mg PO Q6H PRN PRN PRN Reason: Pain Score 1-3/10 Ketorolac Tromethamine (Toradol (Bkc)) 30 mg IV Q6H SREE Stop: 05/18/19 06:01 Last Admin: 05/17/19 06:18 Dose: 30 mg Documented by: Methylergonovine Maleate (Methergine) 0.2 mg IM X1 PRN PRN Reason: Uterine Atony Naloxone HCl (Narcan) 0.02 mg IV Q1M PRN PRN Reason: RR <10 and pt unresponsive Ondansetron HCl (Zofran) 4 mg IV Q4H PRN PRN PRN Reason: Nausea Oxycodone HCl (Oxyir) 5 - 10 mg PO Q4H PRN PRN PRN Reason: Pain Score 4-10/10 Prochlorperazine Edisylate (Compazine Iv) 10 mg IV Q6H PRN PRN PRN Reason: NAUSEA Senna/Docusate Sodium (Senokot-S, Humera-Colace) 0 tablet PO DAILY PRN PRN Reason: Constipation Last Admin: 05/16/19 20:04 Dose: 2 tablet Documented by: Simethicone (Mylicon) 80 mg PO PCHS PRN PRN Reason: Indigestion/stomach pain Last Admin: 05/16/19 20:04 Dose: 80 mg Documented by: Sodium Chloride () 5 - 15 ml IV UD PRN PRN Reason: SALINE FLUSH Last Admin: 05/17/19 06:18 Dose: 10 ml Documented by: Medical Necessity - Tobacco Use Smoking Status: Never smoker Assessment/Plan 33yo POD# 1 s/p RLTCS doing well. -A positive - -Routine postop care
[2019-05-17] MEDS: Acetaminophen 500 MG Tablet 1000 MG PO ×2 (08:01→18:19)
[2019-05-17 08:11] VITALS: BP 97/56; PULSE 80; RESP 16; TEMP 36.7
[2019-05-17] MEDS: Enoxaparin 40 MG/0.4 ML Syringe SC (11:10)
[2019-05-17] MEDS: Senna/Docusate Sodium 1 Tablet PO (11:11)
[2019-05-17 13:51] VITALS: BP 122/75; PULSE 84; RESP 14; TEMP 36.7
[2019-05-17 21:14] VITALS: BP 115/79; PULSE 91; RESP 16; TEMP 36.9
[2019-05-18 02:00] VITALS: BP 111/70; PULSE 84; RESP 16; TEMP 36.9
[2019-05-18] MEDS: Acetaminophen 500 MG Tablet 1000 MG PO ×3 (02:02→22:59)
[2019-05-18] MEDS: Ibuprofen 600 MG Tablet PO ×3 (06:13→18:07)
[2019-05-18] MEDS: Senna/Docusate Sodium 1 Tablet PO (08:52)
[2019-05-18 08:58] VITALS: BP 115/69; RESP 16; TEMP 36.6
--- NOTE | 2019-05-18 09:13 | PCM.PN.BLA ---
Progress Note S: Reports incision sore. Mild cramping with breast feeding. Is using belly binder as needed. BM this AM. O: AVSS Fundus u/1, firm, midline Moderate lochia rubra A: S/P Repeat Csection POD #2 female Normal course P: Continue care Encouraged oral pain medication as well as stool softeners Increase fluids and high fiber diet To discharge tomorrow STROKE Vital Signs/Narrative: Vital Signs Temp Resp BP 05/18/19 08:58 97.8 F 16 115/69
[2019-05-18] MEDS: Enoxaparin 40 MG/0.4 ML Syringe SC (10:21)
[2019-05-18 14:00] VITALS: BP 107/70; PULSE 92; RESP 16; TEMP 36.4
[2019-05-18] MEDS: oxyCODONE 5 MG Tablet PO (19:52)
[2019-05-18 19:54] VITALS: BP 121/78; PULSE 96; RESP 18; TEMP 36.6; O2SAT 97
[2019-05-19] MEDS: Ibuprofen 600 MG Tablet PO ×3 (00:09→12:21)
[2019-05-19 02:30] VITALS: BP 116/68; PULSE 78; RESP 16; TEMP 36.3; O2SAT 96
--- NOTE | 2019-05-19 08:58 | PCM.PN.OB ---
Subjective: Passing flatus, had a few bowel movements. Pain is controlled. Looks forward to going home. Denies heavy lochia. Objective: AVSS - Physical Exam Vitals/I&O's: Vital Signs Temp Pulse Resp BP Pulse Ox 97.3 F L 78 16 116/68 96 05/19/19 02:30 05/19/19 02:30 05/19/19 02:30 05/19/19 02:30 05/19/19 02:30 Oxygen Delivery Method Room Air Weight: 98.2 kg Body Mass Index (BMI) 42.3 Intake and Output for Last 24 Hours 05/17/19 05/18/19 05/19/19 23:59 23:59 23:59 Intake Total 0 / 0 Balance 0 / 0 General: Alert, Oriented x3, Cooperative, No apparent distress HEENT: Atraumatic, Normocephalic Lungs: Clear to auscultation, Normal air movement Cardiovascular: Regular rate, Regular Rhythm, Normal S1, Normal S2 Abdomen: Soft, Non Tender, Non-Distended, - - fundus firm and nontender, lochia scant Extremities: No edema, No Calf Tenderness Neurological: Neuro grossly intact Psych/Mental Status: Normal Affect, Appropriate, Alert and oriented to time, place, person, mood and affect Current Medications Acetaminophen (Tylenol) 1,000 mg PO Q8H PRN PRN Reason: Pain Score 1-3/10 Last Admin: 05/18/19 22:59 Dose: 1,000 mg Documented by: Bisacodyl (Dulcolax) 10 mg RECTAL UD PRN PRN Reason: If no BM Enoxaparin Sodium (Lovenox) 40 mg SC DAILY [facility] Last Admin: 05/18/19 10:21 Dose: 40 mg Documented by: Hydrocortisone (Hytone) 1 applic TOPICAL TID PRN PRN; Protocol PRN Reason: Discomfort Naloxone HCl 4 mg/ Dextrose 504 mls @ 0 mls/hr IV .Q0M PRN; Protocol PRN Reason: Respiratory depression Ibuprofen (Motrin) 600 mg PO Q6H PRN PRN PRN Reason: Pain Score 1-3/10 Last Admin: 05/19/19 06:08 Dose: 600 mg Documented by: Methylergonovine Maleate (Methergine) 0.2 mg IM X1 PRN PRN Reason: Uterine Atony Naloxone HCl (Narcan) 0.02 mg IV Q1M PRN PRN Reason: RR <10 and pt unresponsive Ondansetron HCl (Zofran) 4 mg IV Q4H PRN PRN PRN Reason: Nausea Oxycodone HCl (Oxyir) 5 - 10 mg PO Q4H PRN PRN PRN Reason: Pain Score 4-10/10 Last Admin: 05/18/19 19:52 Dose: 5 mg Documented by: Prochlorperazine Edisylate (Compazine Iv) 10 mg IV Q6H PRN PRN PRN Reason: NAUSEA Senna/Docusate Sodium (Senokot-S, Humera-Colace) 0 tablet PO DAILY PRN PRN Reason: Constipation Last Admin: 05/18/19 08:52 Dose: 2 tablet Documented by: Simethicone (Mylicon) 80 mg PO PCHS PRN PRN Reason: Indigestion/stomach pain Last Admin: 05/18/19 18:11 Dose: 80 mg Documented by: Sodium Chloride () 5 - 15 ml IV UD PRN PRN Reason: SALINE FLUSH Last Admin: 05/17/19 23:39 Dose: 10 ml Documented by: Medical Necessity - Tobacco Use Smoking Status: Never smoker Assessment/Plan 33yo POD# 3 s/p RLTCS doing well. -A positive - -Routine postop care -d/c home today
[2019-05-19] MEDS: Acetaminophen 500 MG Tablet 1000 MG PO (09:09)
[2019-05-19] MEDS: Senna/Docusate Sodium 1 Tablet PO (09:19)
[2019-05-19 09:39] VITALS: BP 121/74; PULSE 82; RESP 16; TEMP 36.6
[2019-05-19] MEDS: Enoxaparin 40 MG/0.4 ML Syringe SC (11:25)
[2019-05-19 14:40] VITALS: BP 98/60; PULSE 76; RESP 16; TEMP 36.6; O2SAT 97
== END 2019-05-19 14:40 | disposition home or self-care (01) | DRG 788 ==
PROVIDERS: Obstetrics & Gynecology; Admitting Provider Obstetrics & Gynecology; Visit Provider Obstetrics & Gynecology
DX: O34.211 Maternal care for low transverse scar from previous cesarean delivery (principal); N85.8 Other specified noninflammatory disorders of uterus; Z3A.38 38 weeks gestation of pregnancy; Z37.0 Single live birth
CPT/HCPCS: 59025; 59050; 85025; 85027; 86850; 86900; 86901; 94762; 99218; 99251; J7120; A4216; G0378; G0463; J2405

== ENCOUNTER → 2019-06-28 18:14 | Outpatient (CLI) | payer OTHER, SELFPAY ==
[2019-05-16 03:31] VITALS: BMI 42.3
[2019-06-28 18:43] LABS: T3 Total - Triiodothyronine 1.17 ng/mL (0.6-1.81)
[2019-06-29 08:20] LABS: T4 Free Direct 0.94 ng/dL (0.76-1.46); T4 Total, Thyroxin 10.1 ug/dL (4.8-13.9); Thyroid Stim Hormone (TSH) 1.74 uIU/mL (0.358-3.74)
[2019-07-01 08:30] LABS: T3 Reverse 15.3 ng/dL (9.2-24.1)
== END ==
PROVIDERS: Referring Provider Obstetrics & Gynecology; Visit Provider Obstetrics & Gynecology
DX: N95.1 Menopausal and female climacteric states (principal); R53.83 Other fatigue
CPT/HCPCS: 84436; 84439; 84443; 84480; 84482

== ENCOUNTER → 2020-01-09 13:15 | Outpatient (CLI) | payer OTHER, SELFPAY ==
[2019-05-16 03:31] VITALS: BMI 42.3
--- NOTE | 2020-01-09 12:25 | CER_PTH ---
PATIENT: AIME RAY LOC: [facility] U#:[id number] AGE/SX: 39/F ROOM: RE01/09/[address]: Dr. Capri Gutierrez MD : [id number] BED: DIS: SPEC #: [id number] RECD: 01/09/20 13:44 STATUS: ALVARADO REShaheen #: [id number] MIGUEL: 01/09/20 12:[address]: aCpri Ellison DEPT: SURGICAL PATHOLOGY RECD BY: Rina Holbrook ENTERED: 01/10/20 07:02 SP TYPE: CERV OTHR DR: No Primary Care Phys Tissues: Uterine cervix, NOS Procedures: Surgery Specimen Level IV HEADER OPERATION: Polypectomy PRE-OP DIAGNOSIS: Cervical polyp TISSUE SUBMITTED: Cervical polyp MICROSCOPIC DIAGNOSIS Cervical polyp, polypectomy: Fragments of benign endocervical polyp. SJ:daylin 01/11/20 MICROSCOPIC DESCRIPTION Slides are reviewed. GROSS DESCRIPTION Received in fixative is one container labeled with the patient's name and designated cervical polyp. The specimen consists of a piece of patel-pink polyp measuring 0.5 x 0.5 x 0.2 cm. Also present in the container are multiple fragments of mucoid tissue measuring in aggregate 1 x 1 x 0.1 cm. The entire specimen is submitted in one cassette. / SJ:rg 01/10/20 TC:5 CPT: 85492
== END ==
PROVIDERS: Visit Provider Obstetrics & Gynecology
DX: N84.1 Polyp of cervix uteri (principal)
CPT/HCPCS: 88305